=== PATIENT | female | born 1950 | race Caucasian/White ===

== ENCOUNTER 2019-06-20 11:49 | Day surgery (SDC) | payer MEDICARE ==
[~2019-06-20 11:49] MED LIST: DIAZEPAM 5 MG TABLET PO ONE
[2019-06-20] MEDS ORDERED: DIAZEPAM 5 MG TABLET PO ONE (14:54)
[2019-06-20] MEDS ORDERED: LIDOCAINE 1% W/EPI 1:200,000 MPF 30ML SQ ONE ×2 (15:45)
--- NOTE | 2019-06-22 07:30 | Operative Note ---
DATE OF SURGERY: 06/20/2019 PREOPERATIVE DIAGNOSIS: Right carpal tunnel syndrome. POSTOPERATIVE DIAGNOSIS: Right carpal tunnel syndrome. OPERATION: Right carpal tunnel release. STAFF SURGEON: Luiz Chavarria MD ANESTHESIA: Local. PREPARATION: Chloraprep. INDIVIDUAL CONSIDERATIONS: None. PROCEDURE: The patient was taken to the operating room and placed supine on the operating room table. Her right arm was prepped and draped in the usual fashion. The patient had 2% lidocaine with epinephrine infiltrated along the longitudinal wrist crease volarly. Sharp dissection carried down after tourniquet was inflated to 250 mmHg. The sharp dissection carried down through the longitudinal wrist crease and then just barely crossing the flexion crease of the wrist at a 45-degree angle ulnarly. Once through the skin, sharp dissection carried down through the palmar fascia and carefully through the transverse metacarpal fascia distally to the superficial arch and proximally to the antebrachial fascia. The median nerve was obviously contused, reddened, and in hourglass configuration. There were no tumors present. After irrigation, tourniquet was let down and hemostasis was obtained with a Bovie and compression. The skin was then approximated with multiple interrupted 4-0 nylon in a vertical mattress fashion. A sterile bulky compressive hand dressing was applied. The patient tolerated procedure well. Needle and sponge counts were correct. Estimated blood loss was minimal. She was taken back to recovery in good condition. There were no complications. [facility]
== END 2019-06-20 16:23 | disposition home or self-care (01) ==
LOC: SUR 11:49
PROVIDERS: ATTEND Orthopaedic Surgery
DX: G56.01 Carpal tunnel syndrome, right upper limb (principal)
CPT/HCPCS: 64721; J3490

== ENCOUNTER 2019-07-31 09:00 | Inpatient (IN) | payer MEDICARE ==
[~2019-07-31 09:00] MED LIST changes: +CEFAZOLIN 2 Gram 2 GM/50 ML BAG IVPB ONE; +CELECOXIB 100 MG CAPSULE PO ONE; -DIAZEPAM 5 MG TABLET PO ONE; +FAMOTIDINE 20MG TABLET PO ONE; +MECLIZINE 25 MG TABLET PO ONE; +METOCLOPRAMIDE 10 MG TABLET PO ONE; +VANCOMYCIN 1GM/200ML PREMIX 1 GM/200 ML PIGGYBACK IVPB ONE
[2019-09-11] MEDS ORDERED: VANCOMYCIN 1GM/200ML PREMIX 1 GM/200 ML PIGGYBACK IVPB ONE (06:00)
[2019-09-11] MEDS ORDERED: MECLIZINE 25 MG TABLET PO ONE (06:00)
[2019-09-11] MEDS ORDERED: CEFAZOLIN 2 Gram 2 GM/50 ML BAG IVPB ONE (06:00)
[2019-09-11] MEDS ORDERED: FAMOTIDINE 20MG TABLET PO ONE (06:00)
[2019-09-11] MEDS ORDERED: METOCLOPRAMIDE 10 MG TABLET PO ONE (06:00)
[2019-09-11] MEDS ORDERED: CELECOXIB 100 MG CAPSULE PO ONE (06:00)
[2019-09-11] MEDS ORDERED: RINGERS SOLUTION,LACTATED 1,000 ML IV ONE ×3 (08:05→10:29)
[2019-09-11 09:30] LABS: ABO GROUP A; RH TYPE POSITIVE
[2019-09-11 09:31] LABS: ANTIBODY SCREEN NEGATIVE (NEGATIVE)
[2019-09-11] MEDS ORDERED: TRANEXAMIC ACID 1,000 MG/10 ML ML IU ONE (09:56)
[2019-09-11] MEDS ORDERED: BUPIVACAINE 0.5% W/EPI MPF 30 ML VIAL IU ONE (09:56)
[2019-09-11] MEDS ORDERED: TRANEXAMIC ACID 1,000 MG/10 ML ML IVPB ONE (09:57)
[2019-09-11] MEDS ORDERED: KETOROLAC 30 MG/ML VIAL IVP PRN (11:32)
[2019-09-11] MEDS ORDERED: AL HYDROX/MAG HYDROX 30ML UD PO PRN (11:32)
[2019-09-11] MEDS ORDERED: DIPHENHYDRAMINE HCL 25 MG CAPSULE PO PRN (11:32)
[2019-09-11] MEDS ORDERED: HYDROMORPHONE HCL 2 MG/ML VIAL IM PRN (11:32)
[2019-09-11] MEDS ORDERED: ONDANSETRON HCL IV 4 MG/2 ML VIAL IVP PRN (11:32)
[2019-09-11] MEDS ORDERED: ACETAMINOPHEN W/ CODEINE 300MG/60MG TABLET PO PRN ×2 (11:32)
[2019-09-11] MEDS ORDERED: MAGNESIUM HYDROXIDE 30 ML UDC PO PRN (11:32)
[2019-09-11] MEDS ORDERED: TRAMADOL HCL 50 MG TABLET PO PRN (11:32)
[2019-09-11] MEDS ORDERED: BISACODYL 10 MG SUPP RC PRN (11:32)
[2019-09-11] MEDS ORDERED: HYDROCODONE/APAP 10/325 TABLET PO PRN (11:32)
[2019-09-11] MEDS ORDERED: NALOXONE 0.4 MG/1 ML VIAL IVP PRN (11:32)
[2019-09-11] MEDS ORDERED: ZOLPIDEM TARTRATE 5 MG TABLET PO PRN (11:32)
[2019-09-11] MEDS ORDERED: ACETAMINOPHEN 325 MG TAB PO PRN (11:32)
[2019-09-11] MEDS: HYDROCODONE/APAP 10/325 TABLET PO PRN ×3 (14:28→22:23)
[2019-09-11] MEDS: POTASSIUM CHLORIDE/D5-0.9%NACL 20 MEQ/1,000 ML BAG IV SCH ×2 (15:57→20:00)
--- NOTE | 2019-09-11 15:59 | Rehab Evaluation ---
Patient Information - Patient Information Diagnosis: L hip OA Ordered Treatment: PT Evaluate and Treat Status: Initial Evaluation Surgery: Yes (L THR) Date of Surgery: 09/11/19 Past Medical/Surgical Hx: PAST MEDICAL/SURGICAL HISTORY Surgery to Affected Area? No Recent Surgery? Past Surgical History CTR RIGHT PARTIAL THYROIDECTOMY CTR LEFT EAR SX MELENOMA REMOVAL WITH SKIN GRAFT C SCOPES BACK INJS AND RHUZOTOMIES PMH - Respiratory Hx Respiratory Disorders Yes Hx of URI Yes: SX IN JUL CDX'D D/T URI RESOLVED NOW PMH - Cardiovascular Hx Cardiovascular Disorders Yes Exercise Tolerance Good Comment: HYPERLIPIDEMIA PMH - Neuro Hx Neurological Disorders Yes Comment: RLS PMH - GI Hx Gastrointestinal Disorders Yes Hx Gastroesophageal Reflux Yes: AT TIMES TAKES TUMS PMH - Hx Genitourinary Disorders No PMH - Endocrine Hx Endocrine Disorders Yes Hx Thyroid Disease Yes: PARTIAL THYROIDECTOMY HAD BENIGN TUMOR REMOVED PMH - Musculoskeletal Hx Musculoskeletal Disorders Yes Hx Arthritis Yes: HIPS HANDS Hx Osteoporosis Yes Comment: RIGHT CTS PMH - Psych Hx Psychiatric Problems No PMH - Hematology/Oncology Hx Hematology/Oncology Yes Disorders Hx Bruising Yes: BRUISES EASILY Hx Cancer Yes: MELENOMA Hx Chemotherapy No Hx Radiation Therapy No Premorbid Status: Detail (The patient was independent with all mobility prior to surgery.) Social History: Detail (The patient lives with spouse in 2 story house with 4 steps at the enterance and one hand rail. The patient will initially be staying on the main level. The main bathroom is on the second floor and a half bathroom is on the main level. The main bathroom is equipped with: a tub/shower combination, hand held shower, shower bench and standard toilet with riser seat. Grab bars are present by both toilet and shower. The patient has a front wheeled walker.) Precautions: [place], Fall, Other (WBAT on the L LE and THR precautions.) - Time With Patient Total Time Spent With Patient (Min): 30 Treatment Procedures: Detail (Initial Evaluation low complexity, gait training) Subjective Information - Subjective Information Per Patient (The patient had no complaints of pain.) Objective Data - Mental Status Patient Orientation: Oriented x3 - Visual Perception Appears within normal limits for therapeutic activities - ROM Not within normal limits (The patient's L hip ins within THR precautions. All other LE AROM is WNL) - Strength/Tone Not within normal limits (The patient's LE strength was not tested s/p surgery however is functional ie: pt. was able to lift LE's in and out of bed.) - Bed Mobility Independent (The paitent was independent with supine to and from sit with minimal guidance of L LE only. The patient was independent with scooting up in bed.) - Transfers Independent (The patient was independent with sit to and from stand transfer and toilet transfer.) - Balance Balance Sitting: Good Balance Standing: Good - Sensation Intact - Gait Detail (The patient ambulated with front wheeled walker WBAT on L LE a distance of 80 feet x 1 with supervision for safety only.) Therapy Assessment - Therapy Assessment Detail (The patient was independent with bed mobility and transfers and required supervision for safety only with ambulation.The patient will be seen for 1 to 2 sessions for completion of inpt. goals.) Problem List - Problem List Physical Therapy Problem List: Detail ( Decreased L LE strength) Goals - Goals Physical Therapy Goals: 1) The patient will ambulate on stairs with supervision for safety using proper technique. 2) The patient will be independent with THR HEP. 3) The patient will ambulate with front wheeled walker 100 feet independently WBAT on L LE. Prognosis - Prognosis Good Plan - Plan Physical Therapy Plan: PT 1-2 visits for gait training on levels and stairs and instruction in THR HEP.
[2019-09-11] MEDS: CEFAZOLIN 2 Gram 2 GM/50 ML BAG IVPB SCH (16:57)
[2019-09-11] MEDS ORDERED: SIMVASTATIN 20 MG TABLET PO SCH (22:00)
[2019-09-11] MEDS ORDERED: ROPINIROLE HCL 1 MG TABLET PO SCH (22:00)
[2019-09-11] MEDS: DOCUSATE SODIUM 100 MG CAPSULE PO SCH (22:25)
[2019-09-12] MEDS: CEFAZOLIN 2 Gram 2 GM/50 ML BAG IVPB SCH ×2 (02:04→10:16)
[2019-09-12] MEDS: HYDROCODONE/APAP 10/325 TABLET PO PRN ×3 (02:18→12:59)
[2019-09-12 06:58] LABS: HEMATOCRIT 32.6 % (35.0-47.0); HEMOGLOBIN 10.2 gm/dl (11.6-16.0)
[2019-09-12] MEDS ORDERED: LEVOTHYROXINE SOD 112 MCG TAB PO SCH (07:00)
[2019-09-12 07:17] LABS: BLOOD UREA NITROGEN 9 mg/dL (8-23); CREATININE 0.5 mg/dL (0.5-0.9); EST GLOMERULAR FILTRATION RATE > 60 mL/min; GLUCOSE,RANDOM 101 mg/dL (74-109)
[2019-09-12] MEDS ORDERED: FERROUS SULFATE 325 MG TAB PO SCH (10:00)
[2019-09-12] MEDS ORDERED: RIVAROXABAN 10 MG TABLET PO SCH (10:00)
[2019-09-12] MEDS ORDERED: LORATADINE 10 MG TABLET PO SCH (10:00)
[2019-09-12] MEDS ORDERED: FLUTICASONE PROPIONATE 50MCG NASAL 16 GM BTL SCH (10:00)
[2019-09-12] MEDS ORDERED: CALCIUM CARBONATE 500 MG TAB.CHEW PO SCH (10:00)
[2019-09-12] MEDS: DOCUSATE SODIUM 100 MG CAPSULE PO SCH (10:16)
--- NOTE | 2019-09-12 10:54 | Rehab Evaluation ---
Patient Information - Patient Information Diagnosis: L hip OA Ordered Treatment: OT Evaluate and Treat Status: Initial Evaluation Surgery: Yes (L THR) Date of Surgery: 09/11/19 Past Medical/Surgical Hx: PAST MEDICAL/SURGICAL HISTORY Surgery to Affected Area? No Recent Surgery? Past Surgical History CTR RIGHT PARTIAL THYROIDECTOMY CTR LEFT EAR SX MELENOMA REMOVAL WITH SKIN GRAFT C SCOPES BACK INJS AND RHUZOTOMIES PMH - Respiratory Hx Respiratory Disorders Yes Hx of URI Yes: SX IN JUL CDX'D D/T URI RESOLVED NOW PMH - Cardiovascular Hx Cardiovascular Disorders Yes Exercise Tolerance Good Comment: HYPERLIPIDEMIA PMH - Neuro Hx Neurological Disorders Yes Comment: RLS PMH - GI Hx Gastrointestinal Disorders Yes Hx Gastroesophageal Reflux Yes: AT TIMES TAKES TUMS PMH - Hx Genitourinary Disorders No PMH - Endocrine Hx Endocrine Disorders Yes Hx Thyroid Disease Yes: PARTIAL THYROIDECTOMY HAD BENIGN TUMOR REMOVED PMH - Musculoskeletal Hx Musculoskeletal Disorders Yes Hx Arthritis Yes: HIPS HANDS Hx Osteoporosis Yes Comment: RIGHT CTS PMH - Psych Hx Psychiatric Problems No PMH - Hematology/Oncology Hx Hematology/Oncology Yes Disorders Hx Bruising Yes: BRUISES EASILY Hx Cancer Yes: MELENOMA Hx Chemotherapy No Hx Radiation Therapy No Premorbid Status: Detail (The patient was independent with all ADLs and f unctional mobility prior to surgery and driving.) Social History: Detail (The patient lives with her retired spouse in 2 story house with 4 steps at the enterance and a left-sided hand rail. The patient will initially be staying on the main level. The main bathroom is on the second floor and a half bathroom is on the main level. The main bathroom is equipped with: a tub/shower combination, hand held shower, shower bench and standard toilet with riser seat. Grab bars are present by both toilet and in the shower. The patient has a front wheeled walker and a personal banking representative.) Precautions: [place], Fall, Other (WBAT on the L LE and THR precautions.) - Time With Patient Total Time Spent With Patient (Min): 26 (1 eval, 1 ADL) Subjective Information - Subjective Information Per Patient (Pt supine in bed upon therapist arrival. "When can I drive?") Objective Data - Pain Pain Present: No Pain Scale Used: Numeric (1 - 10) - Mental Status Patient Orientation: Oriented x3 - Visual Perception Appears within normal limits for therapeutic activities - ROM Within normal limits (B UEs) - Strength/Tone Within normal limits (B UEs) - Coordination Appears within normal limits for therapeutic activities - Bed Mobility Independent (Supine to/from EOB w/ increased time and effort. Educated Pt on modified technique for increased success.) - Transfers Independent (Sit to/from stand to EOB w/ FWW w/ good balance and safety awareness.) - Balance Balance Sitting: Good Balance Standing: Good - Sensation Intact - Gait Detail (Functional mobility w/ FWW within bedroom w/ good balance and safety awareness and good use of hip precautions.) - ADL's/IADL's Detail (OT educated Pt on use of AE and modified technique for LB dressing and Pt demos understanding to don/doff socks, underwear, pants at EOB w/ standing for pant mgmt w/ good balance. Educated Pt on compression socks wear schedule, tub/shower TF, car TF, modified technique if sitting on lower surfaces and importance of elevating surfaces, and Pt verbalizes understanding post several questions and therapist education. Pt verbalizes 3/3 hip precautions.) - Special Tests No Therapy Assessment - Therapy Assessment Detail (Pt demos good safety and independence w/ all ADLs and functional TFs. Reports her can assist as needed at DC. Pt appears ready for DC home when medically ready.) Patient Education - Patient Education Teaching Topic: Equipment Use, Precautions Response: Return Demonstration, Reinforcement Needed, Verbalize Understanding Teaching Method: Discussion, Demonstration Teaching Recipient: Patient Barriers To Learning: None Problem List - Problem List Physical Therapy Problem List: Detail ( Decreased L LE strength) Occupational Therapy Problem List: Detail (No further IP OT needs identified.) Goals - Goals Physical Therapy Goals: 1) The patient will ambulate on stairs with supervision for safety using proper technique. 2) The patient will be independent with THR HEP. 3) The patient will ambulate with front wheeled walker 100 feet independen tly WBAT on L LE. Occupational Therapy Goals: No further IP OT needs/goals identified. Prognosis - Prognosis Good Plan - Plan Physical Therapy Plan: PT 1-2 visits for gait training on levels and stairs and instruction in THR HEP. Occupational Therapy Plan: No further IP OT needs identified, DC OT services. Pt appears ready for home DC when medically ready. Thank you for this referral.
--- NOTE | 2019-09-12 11:15 | Physical Therapy Tx Note ---
Physical Therapy Tx Note - Treatment Note Tolerated: Good Total Time Spent With Patient: 25 Physical Therapy Tx Note: Detail (The patient was in bed when PT arrived and complained of L quad region pain. The patient was independent with supine to and from sit with use of strap to lift L LE. The patient ambulated to bathroom with front wheeled walker with supervision for safety. The patient ambulated with front wheeled walker a distance of 120 feet x 1 WBAT on L LE independently. The patient ambulated on 3 steps with use of one railing and cane using proper technique with supervision for safety only. The patient completed THR HEP including: supine heel slides and hip abduction, gluteal sets, quad sets, hamstring sets and ankle pumps. The patient has met all inpt. goals and is discharged from inpt. PT.) Physical Therapy Problem List: Detail ( Decreased L LE strength) Physical Therapy Goals: 1) The patient will ambulate on stairs with supervision for safety using proper technique. (Goal Met). 2) The patient will be independent with THR HEP. (Goal Met). 3) The patient will ambulate with front wheeled walker 100 feet independently WBAT on L LE. (Goal Met) Physical Therapy Plan: The patient is discharged from inpt. PT and is to continue with Home PT.
--- NOTE | 2019-09-12 12:41 | Operative Note ---
DATE OF SURGERY: 09/11/2019 PREOPERATIVE DIAGNOSIS: End-stage arthrosis of the left hip. POSTOPERATIVE DIAGNOSIS: End-stage arthrosis of the left hip. OPERATION: Cementless left total hip arthroplasty using Mitchell [employer] Nephew components with a size 13 high-offset [place] stem, a size 52 no-hole Reflection cup with a 32 mm diameter 35-degree offset highly crosslinked liner, and a -3 32 mm diameter Oxinium head. STAFF SURGEON: Luiz Chavarria MD ANESTHESIA: Spinal. PREPARATION: Chloraprep. INDIVIDUAL CONSIDERATIONS: None. PROCEDURE: The patient was taken to the operating room, placed supine on the operating room table. She had a successful induction of spinal anesthetic. She was then placed on her side left side up, and her left leg and hip were prepped and draped in the usual fashion. The patient had direct posterior approach to the hip. Sharp dissection carried down through skin and subcutaneous tissues. Small veins were coagulated with a Bovie. The tensor gluteal fascia was opened along the entire length of the incision, and deep retractors were placed. Short external rotators were identified, piriformis fossa removed exposing the posterior capsule. Posterior capsulectomy was performed. Hip was dislocated posteriorly. She had exposed bone near the weightbearing dome of the head and of the acetabulum. Femoral neck cut was then made freehand about a fingerbreadth above the lesser troc using an oscillating saw. Then a rim capsulectomy was performed. Starting with a 43 mm reamer to just get to the medial wall, I reamed to the introitus to 51 for a size 52 cup. I slightly under-reamed to 50. After thorough irrigation, I impacted a size 52 no-hole Reflection cup in 20 degrees of forward flexion and 40 degrees of abduction using the extraarticular alignment guide and bony landmarks. There was solid cementless fixation. A center cap screw was placed. I then impacted a 35-degree offset 32 mm diameter highly crosslinked liner. This gave an excellent stable acetabular construct, and this was packed off. The proximal femur was delivered into the wound, and box cutting osteotome was used to remove the proximal metaphyseal bone. Mid stem reaming was done to a 13. I started feeling cortex between 11-12. I broached to a size 13. Anteversion was about 25-30 degrees. After calcar reaming, I found that with a high-offset -3 head, there was solid stability. I removed the trial, irrigated everything out again, impacted the size 12 cementless [place] stem with solid calcar contact. I dried the Rikki taper, impacted a -3 Oxinium head. I reduced the hip with absolute stability. Actually, it was fully stable with full flexion and internal rotation to 90 degrees, full anterior stability in external rotation and extension. Normal to shuck. Actually, the only way to dislocate the head would be to pull it out with a hook. After irrigation, hemostasis was obtained with a Bovie. Sciatic nerve was inspected and found to be completely intact. I mixed 1 g of tranexamic acid with 30 mL of saline and placed this deep to the fascia. The fascia was then closed with a running #2 quill, subcu was closed in layers with running 0 quill, skin was closed with julianna. The skin and subcutaneous tissue were infiltrated with 30 mL of 0.5% Marcaine with epinephrine. Sterile bulky compressive USMAN-type dressing was applied. The patient tolerated the procedure well. Needle and sponge counts were correct. Estimated blood loss was 300 mL. We will check hemoglobin in the morning. There were no complications. [facility]
[2019-09-12] MEDS ORDERED: 0.9 % SODIUM CHLORIDE 10 ML VIAL IVP ONE (15:08)
[2019-09-12] MEDS ORDERED: ROPIVACAINE HCL (NAROPIN) /PF 5MG/ML 20ML VIAL IV ONE (15:08)
[2019-09-12] MEDS ORDERED: DEXAMETHASONE 4 MG/ML 1ML VIAL IVP ONE (15:08)
[2019-09-12] MEDS ORDERED: LIDOCAINE 2% MDV (20MG/ML) 20ML VIAL IV ONE (15:37)
[2019-09-12] MEDS ORDERED: PROPOFOL 10 MG/ML VIAL IV ONE (15:37)
[2019-09-12] MEDS ORDERED: MIDAZOLAM HCL 2MG/2ML VIAL IV ONE (15:37)
[2019-09-12] MEDS ORDERED: FENTANYL PF 100MCG/2ML VIAL IV ONE (15:37)
[2019-09-12] MEDS ORDERED: EPHEDRINE SULFATE 50 MG/ML ML IV ONE (15:37)
--- NOTE | 2019-09-13 16:20 | Discharge Summary ---
DATE OF ADMISSION: 09/11/2019 DATE OF DISCHARGE: 09/12/2019 DATE OF SURGERY: 09/11/2019 HISTORY: The patient is a delightful 68-year-old female who presents with end- stage arthrosis of her left hip. She was admitted after left total hip arthroplasty. Postoperatively she did extremely well. Her hospital course was unremarkable. Discharge hemoglobin is 10.2 and did not require transfusion. The plan is to discharge her to home in the care of her family and home PT visiting nurse has been arranged. She will be given [place] for pain and Xarelto followed by aspirin for DVT prophylaxis. Visiting nurse will remove her sutures in 2 weeks. She will follow up in my office in 4 weeks. DISCHARGE CONDITION: Good. OPERATIONS OR PROCEDURES: Cementless left total hip arthroplasty. [facility]
== END 2019-09-12 15:38 | disposition home health service (06) | DRG 470 ==
LOC: MEDSURG 09-11 06:38
PROVIDERS: ADMIT Orthopaedic Surgery; ATTEND Orthopaedic Surgery
PROC: 0SRB06A Replacement of Left Hip Joint with Oxidized Zirconium on Polyethylene Synthetic Substitute, Uncemented, Open Approach (ICD-10-PCS; principal; 2019-09-11 09:00)
DX: M16.12 Unilateral primary osteoarthritis, left hip (principal); M81.0 Age-related osteoporosis without current pathological fracture; E78.00 Pure hypercholesterolemia, unspecified; G25.81 Restless legs syndrome
CPT/HCPCS: 76942; 80048; 85014; 85018; 86850; 86900; 86901; 94010; C1776; J1885; J3370; J3480; J7120